=== PATIENT | male | born 1960 | race Caucasian/White ===

== ENCOUNTER 2024-03-15 21:35 | Inpatient (IN) | payer OTHER ==
[2024-03-15 22:22] LABS: #Basophils Less than 0.03 10x3/uL (0.0-0.2); #Eosinphils Less than 0.03 10x3/uL (0.0-0.7); %Basophils 0.2 % (0.0-1.0); %Lymphocytes 11.8 % (21.0-51.0); %Monocytes 8.9 % (0.0-10.0); %Neutrophils 78.7 % (42.0-75.0); Hematocrit 35.2 % (42.0-52.0); Hemoglobin 12.5 g/dL (14.0-18.0); Mean Corpuscular HGB CONC 35.5 g/dL (32.0-36.0); Mean Corpuscular Hemoglobin 34.9 pg (27.0-31.0); Mean Corpuscular Volume 98.3 fL (78.0-98.0); Mean Platelet Volume 11.8 fL (7.4-10.4); Platelet Count 68 10x3/uL (130-400); RBC Distribution Width 14.3 % (11.5-14.5); Red Blood Cell (RBC) Count 3.58 mill/uL (4.70-6.10)
[2024-03-15 22:31] LABS: ALT (SGPT) 27 U/L (8-55); AST (SGOT) 76 U/L (5-34); Albumin 2.9 g/dL (3.4-4.8); Alkaline Phosphatase 50 U/L (40-110); Anion Gap 12 mmol/L (10-20); BUN (Urea Nitrogen) 22 mg/dL (8.4-25.7); Bilirubin, Total 2.4 mg/dL (0.2-1.2); Calc. Creatinine Clearance 0 mL/min (70-130); Calcium 8.2 mg/dL (7.8-10.44); Carbon Dioxide 16 mmol/L (23-31); Chloride 110 mmol/L (98-107); Estimated GFR 77; Globulin 3.7 g/dL (2.4-3.5); Glucose 116 mg/dL (80-115); Potassium 3.7 mmol/L (3.5-5.1); Protein, Total 6.6 g/dL (5.8-8.1); Sodium 134 mmol/L (136-145)
[2024-03-15] MEDS ORDERED: Ondansetron ODT 4 MG TAB PO PRN (23:51)
[2024-03-16 00:33] LABS: Acetaminophen Less than 10 mcg/mL (10.0-30.0); Alcohol Less than 10.0 mg/dL (Less than 10); Salicylate Less than 8.0 mg/dL (15.0-30.0)
[2024-03-16 00:44] LABS: INR-International Normal Ratio 1.9; PTT 34.8 sec (22.9-36.1); Prothrombin Time 21.9 sec (12.0-14.7)
[2024-03-16 01:58] VITALS: BMI 36.4
[2024-03-16] MEDS: Lactated Ringer's 1,000 ML IV SCH (02:09)
[2024-03-16] MEDS ORDERED: Simethicone Chewable 80 MG TAB PO PRN (03:39)
[2024-03-16] MEDS: Vancomycin (BATCH) 1.25 GM in Premix 1 BAG IVPB SCH (05:35)
[2024-03-16] MEDS: Ipratropium 200 Puff Oral Inhaler INH SCH (07:23)
[2024-03-16 07:35] LABS: Amphetamine Not Detected (NotDetected); Barbiturates Screen Not Detected (NotDetected); Benzodiazepine Screen Not Detected (NotDetected); Cocaine Metabolite Screen Not Detected (NotDetected); Methadone Not Detected (NotDetected); Methamphetamine Not Detected (NotDetected); Opiate Screen Not Detected (NotDetected); Oxycodone Screen Not Detected (NotDetected); Phencyclidine (PCP) Not Detected (NotDetected); THC/Cannabinoid Screen Not Detected (NotDetected); Tricyclic Screen Not Detected (NotDetected)
[2024-03-16] MEDS: Pantoprazole DR 40 MG TAB PO SCH (08:07)
[2024-03-16] MEDS: Magnesium Oxide 400 MG TAB PO SCH (08:07)
[2024-03-16] MEDS ORDERED: Enoxaparin 40 MG (0.4 mL) SYRINGE SC SCH (09:00)
[2024-03-16] MEDS: Lactulose 20 GM (30 mL) UDCUP PO SCH (09:31)
[2024-03-16] MEDS: cefTRIAXone\\ROCEPHIN 2 GM in Sodium Chloride 0.9% 100 ML IVPB SCH (16:24)
[2024-03-16] MEDS: Ibuprofen 800 MG TAB PO PRN (16:24)
[2024-03-17 07:50] LABS: ALT (SGPT) 29 U/L (8-55); AST (SGOT) 97 U/L (5-34); Albumin 2.6 g/dL (3.4-4.8); Alkaline Phosphatase 53 U/L (40-110); Anion Gap 10 mmol/L (10-20); BUN (Urea Nitrogen) 18 mg/dL (8.4-25.7); Bilirubin, Total 1.3 mg/dL (0.2-1.2); Calc. Creatinine Clearance 156 mL/min (70-130); Calcium 8.2 mg/dL (7.8-10.44); Carbon Dioxide 17 mmol/L (23-31); Chloride 111 mmol/L (98-107); Estimated GFR 97; Globulin 3.4 g/dL (2.4-3.5); Glucose 108 mg/dL (80-115); Potassium 3.9 mmol/L (3.5-5.1); Sodium 134 mmol/L (136-145)
[2024-03-17 07:51] LABS: #Basophils Less than 0.03 10x3/uL (0.0-0.2); %Basophils 0.3 % (0.0-1.0); %Eosinophils 2.1 % (0.0-10.0); %Lymphocytes 16.9 % (21.0-51.0); %Monocytes 10.5 % (0.0-10.0); %Neutrophils 69.9 % (42.0-75.0); Hematocrit 34.3 % (42.0-52.0); Hemoglobin 11.9 g/dL (14.0-18.0); Mean Corpuscular HGB CONC 34.7 g/dL (32.0-36.0); Mean Corpuscular Hemoglobin 34.1 pg (27.0-31.0); Mean Corpuscular Volume 98.3 fL (78.0-98.0); Mean Platelet Volume 11.5 fL (7.4-10.4); Platelet Count 43 10x3/uL (130-400); RBC Distribution Width 14.3 % (11.5-14.5); Red Blood Cell (RBC) Count 3.49 mill/uL (4.70-6.10)
[2024-03-17 07:58] LABS: Vancomycin, Random 28.5 ug/mL (See Comment)
[2024-03-17] MEDS: traMADol HCl 50 MG TAB PO SCH (08:45)
[2024-03-17] MEDS: Clindamycin/D5W 600 MG in Premix 1 BAG IVPB SCH (13:28)
[2024-03-17] MEDS: Ipratropium 200 Puff Oral Inhaler INH SCH (14:33)
[2024-03-17 17:53] LABS: Vancomycin, Random 11.5 ug/mL (See Comment)
[2024-03-17] MEDS: traMADol HCl 50 MG TAB PO PRN (18:18)
[2024-03-17] MEDS: Vancomycin (BATCH) 1.75 GM in Premix 1 BAG IVPB SCH (21:53)
[2024-03-17] MEDS: Ibuprofen 800 MG TAB PO SCH (21:54)
[2024-03-18 08:21] LABS: #Basophils Less than 0.03 10x3/uL (0.0-0.2); %Basophils 0.3 % (0.0-1.0); %Eosinophils 4.1 % (0.0-10.0); %Lymphocytes 18.7 % (21.0-51.0); %Monocytes 11.4 % (0.0-10.0); %Neutrophils 64.9 % (42.0-75.0); Hematocrit 33.3 % (42.0-52.0); Hemoglobin 11.6 g/dL (14.0-18.0); Mean Corpuscular HGB CONC 34.8 g/dL (32.0-36.0); Mean Corpuscular Hemoglobin 34.7 pg (27.0-31.0); Mean Corpuscular Volume 99.7 fL (78.0-98.0); Mean Platelet Volume 11.9 fL (7.4-10.4); Platelet Count 53 10x3/uL (130-400); RBC Distribution Width 14.3 % (11.5-14.5); Red Blood Cell (RBC) Count 3.34 mill/uL (4.70-6.10)
[2024-03-18 08:34] LABS: Vancomycin, Random 20.4 ug/mL (See Comment)
[2024-03-18 08:38] LABS: ALT (SGPT) 31 U/L (8-55); AST (SGOT) 83 U/L (5-34); Albumin 2.5 g/dL (3.4-4.8); Alkaline Phosphatase 57 U/L (40-110); Anion Gap 11 mmol/L (10-20); BUN (Urea Nitrogen) 18 mg/dL (8.4-25.7); Bilirubin, Total 1.1 mg/dL (0.2-1.2); Calc. Creatinine Clearance 168 mL/min (70-130); Calcium 8.3 mg/dL (7.8-10.44); Carbon Dioxide 18 mmol/L (23-31); Chloride 110 mmol/L (98-107); Estimated GFR 99; Globulin 3.5 g/dL (2.4-3.5); Glucose 89 mg/dL (80-115); Sodium 135 mmol/L (136-145)
[2024-03-18] MEDS ORDERED: Ipratropium 200 Puff Oral Inhaler INH PRN (12:42)
[2024-03-18] MEDS: Vancomycin (BATCH) 1.5 GM in Premix 1 BAG IVPB SCH (21:23)
[2024-03-18] MEDS: traMADol HCl 50 MG TAB PO PRN (21:25)
[2024-03-19 07:42] LABS: Vancomycin, Random 11.7 ug/mL (See Comment)
[2024-03-19] MEDS: Vancomycin (BATCH) 1.5 GM/300 ML BAG ONE (08:40)
[2024-03-19 09:10] LABS: #Basophils Less than 0.03 10x3/uL (0.0-0.2); %Basophils 0.4 % (0.0-1.0); %Eosinophils 4.4 % (0.0-10.0); %Monocytes 8.4 % (0.0-10.0); %Neutrophils 70.4 % (42.0-75.0); Hematocrit 31.8 % (42.0-52.0); Hemoglobin 10.9 g/dL (14.0-18.0); Mean Corpuscular HGB CONC 34.3 g/dL (32.0-36.0); Mean Corpuscular Hemoglobin 34.5 pg (27.0-31.0); Mean Corpuscular Volume 100.6 fL (78.0-98.0); Mean Platelet Volume 11.7 fL (7.4-10.4); Platelet Count 48 10x3/uL (130-400); RBC Distribution Width 14.4 % (11.5-14.5); Red Blood Cell (RBC) Count 3.16 mill/uL (4.70-6.10)
[2024-03-19] MEDS: Linezolid 600 MG TAB PO SCH ×2 (10:53→20:57)
[2024-03-19 12:04] LABS: ALT (SGPT) 43 U/L (8-55); AST (SGOT) 97 U/L (5-34); Albumin 2.5 g/dL (3.4-4.8); Alkaline Phosphatase 60 U/L (40-110); Anion Gap 12 mmol/L (10-20); BUN (Urea Nitrogen) 19 mg/dL (8.4-25.7); Calc. Creatinine Clearance 186 mL/min (70-130); Calcium 8.1 mg/dL (7.8-10.44); Carbon Dioxide 17 mmol/L (23-31); Chloride 109 mmol/L (98-107); Estimated GFR 102; Globulin 3.6 g/dL (2.4-3.5); Glucose 85 mg/dL (80-115); Potassium 4.6 mmol/L (3.5-5.1); Protein, Total 6.1 g/dL (5.8-8.1); Sodium 133 mmol/L (136-145)
[2024-03-20] MEDS: Spironolactone 25 MG TAB PO SCH (09:57)
[2024-03-20] MEDS: Furosemide 40 MG TAB PO SCH (09:57)
[2024-03-20 11:41] LABS: ALT (SGPT) 42 U/L (8-55); AST (SGOT) 72 U/L (5-34); Albumin 2.4 g/dL (3.4-4.8); Alkaline Phosphatase 62 U/L (40-110); Anion Gap 11 mmol/L (10-20); BUN (Urea Nitrogen) 15 mg/dL (8.4-25.7); Calc. Creatinine Clearance 174 mL/min (70-130); Calcium 8.4 mg/dL (7.8-10.44); Carbon Dioxide 18 mmol/L (23-31); Chloride 110 mmol/L (98-107); Estimated GFR 100; Globulin 3.4 g/dL (2.4-3.5); Glucose 114 mg/dL (80-115); Potassium 4.5 mmol/L (3.5-5.1); Protein, Total 5.8 g/dL (5.8-8.1); Sodium 134 mmol/L (136-145)
[2024-03-20 11:53] LABS: #Basophils Less than 0.03 10x3/uL (0.0-0.2); %Basophils 0.4 % (0.0-1.0); %Eosinophils 5.4 % (0.0-10.0); %Lymphocytes 14.5 % (21.0-51.0); %Monocytes 10.7 % (0.0-10.0); %Neutrophils 67.8 % (42.0-75.0); Hematocrit 33.6 % (42.0-52.0); Hemoglobin 11.2 g/dL (14.0-18.0); Mean Corpuscular HGB CONC 33.3 g/dL (32.0-36.0); Mean Corpuscular Hemoglobin 34.5 pg (27.0-31.0); Mean Corpuscular Volume 103.4 fL (78.0-98.0); Mean Platelet Volume 11.5 fL (7.4-10.4); Platelet Count 57 10x3/uL (130-400); RBC Distribution Width 14.3 % (11.5-14.5); Red Blood Cell (RBC) Count 3.25 mill/uL (4.70-6.10)
[2024-03-20 20:22] VITALS: BP 126/77; TEMP 97.5
[2024-03-21] MEDS ORDERED: Spironolactone 25 MG TAB PO SCH (08:00)
[2024-03-21] MEDS ORDERED: Furosemide 40 MG TAB PO SCH (09:00)
== END 2024-03-20 21:15 | DRG 602 ==
LOC: ERS 21:35 → EEVIPCON 21:35 → T4-A 22:45
PROVIDERS: ADMIT Family Medicine; ATTEND Family Medicine
DX: L03.113 Cellulitis of right upper limb (principal); A41.9 Sepsis, unspecified organism; G93.41 Metabolic encephalopathy; E87.1 Hypo-osmolality and hyponatremia; I89.0 Lymphedema, not elsewhere classified; L89.311 Pressure ulcer of right buttock, stage 1; K74.60 Unspecified cirrhosis of liver; D69.6 Thrombocytopenia, unspecified; E66.9 Obesity, unspecified; R19.7 Diarrhea, unspecified; J44.9 Chronic obstructive pulmonary disease, unspecified; Z88.8 Allergy status to other drugs, medicaments and biological substances; Z91.010 Allergy to peanuts; Z87.891 Personal history of nicotine dependence; Z79.899 Other long term (current) drug therapy; Z68.34 Body mass index [BMI] 34.0-34.9, adult; K76.82 Hepatic encephalopathy; I10 Essential (primary) hypertension
CPT/HCPCS: 36415; 36416; 70450; 71045; 74176; 80053; 80202; 80306; 80307; 81001; 82140; 83605; 83690; 84145; 85025; 85610; 85730; 86141; 87040; 93005; 96374; 96375; 96376; J0696; J3370; J3490; J7120; P9047